=== PATIENT | female | born 1995 | race American Indian/Alaskan Native ===

== ENCOUNTER 2017-10-11 13:56 | Emergency (ER) | payer MEDICAID ==
[2017-10-11 14:01] VITALS: TEMP 98.3; O2SAT 96
--- NOTE | 2017-10-11 14:56 | ED PDOC ---
HPI: General Adult Time Seen by Provider: 10/11/17 14:18 Chief Complaint (Nursing): Dizziness/Lightheaded Chief Complaint (Provider): i need to get checked out History Per: Patient History/Exam Limitations: no limitations Current Symptoms Are (Timing): Still Present Severity: Mild Recently: Treated By A Physician Additional Complaint(s): 22yo female c/o dizziness, concerns for , mild pelvic cramping ongoing for about a week. Has mild vaginal bleeding but dark and not consistent with prior menses. Has prior history of ectopic so concerned for same. Was prior on depoprovera, stopped several months ago. denies fever, syncope, urinary symptoms or headache. States went to a "fast track" and had pelvic exam last week and blood work/ test at [facility] last week unknown results but they told her preg negative. Now here for second opinion and inability to followup. Past Medical History Reviewed: Historical Data, Nursing Documentation, Vital Signs Vital Signs: Last Vital Signs Temp 98.3 F 10/11/17 13:59 Pulse 89 10/11/17 16:30 Resp 18 10/11/17 16:30 BP 130/80 10/11/17 16:30 Pulse Ox 96 10/11/17 16:52 - Medical History PMH: Anxiety, Depression Other PMH: schizoaffective disorder - Surgical History Other surgeries: ectopic preg ?oophorectomuy - Family History Family History: States: Unknown Family Hx - Living Arrangements Living Arrangements: With Family - Social History Current smoker - smoking cessation education provided: No - Immunization History Hx Tetanus Toxoid Vaccination: No Hx Influenza Vaccination: No Hx Pneumococcal Vaccination: No - Home Medications Home Medications: Ambulatory Orders Medication Instructions Recorded Nitrofurantoin Macrocrystals 100 mg PO BID #14 cap 08/08/16 [Macrobid] - Allergies Allergies/Adverse Reactions: Allergies Allergy/AdvReac Type Severity Reaction Status Date / Time No Known Allergies Allergy Verified 10/11/17 13:59 Review of Systems Constitutional: Negative for: Fever Cardiovascular: Positive for: Light Headedness. Negative for: Chest Pain Respiratory: Negative for: Cough Gastrointestinal: Negative for: Abdominal Pain Genitourinary Female: Positive for: Vaginal Bleeding, Pelvic Pain. Negative for : Dysuria Musculoskeletal: Negative for: Neck Pain Skin: Negative for: Rash, Lesions Neurological: Positive for: Dizziness. Negative for: Weakness, Change in Speech Psych: Positive for: Anxiety, Depression. Negative for: Psychosis, Suicidal ideation, Withdrawal Physical Exam - Reviewed Nursing Documentation Reviewed: Yes Vital Signs Reviewed: Yes - Physical Exam Appears: Positive for: Well, Non-toxic, No Acute Distress Head Exam: Positive for: ATRAUMATIC, NORMAL INSPECTION, NORMOCEPHALIC Skin: Positive for: Normal Color, Warm, DRY Eye Exam: Positive for: EOMI, Normal appearance, PERRL ENT: Positive for: Normal ENT Inspection Neck: Positive for: Normal, Painless ROM Cardiovascular/Chest: Positive for: Regular Rate, Rhythm Respiratory: Positive for: CNT, Normal Breath Sounds Gastrointestinal/Abdominal: Positive for: Soft. Negative for: Tenderness, Guarding Back: Positive for: Normal Inspection Extremity: Positive for: Normal ROM Neurologic/Psych: Positive for: Alert, Oriented. Negative for: Motor/Sensory Deficits - Laboratory Results Result Diagrams: 10/11/17 14:59 10/11/17 14:59 - ECG O2 Sat by Pulse Oximetry: 96 Medical Decision Making Medical Decision Making: workup for dizziness initiated check bloodwork, preg status Disposition - Clinical Impression Clinical Impression: Dizziness - Patient ED Disposition Is Patient to be Admitted: Transfer of Care Counseled Patient/Family Regarding: Studies Performed, Diagnosis - Disposition Referrals: [facility] [Outside] Disposition: Transfer of Care Disposition Time: 14:58 Condition: STABLE Additional Instructions: DRINK PLENTY OF HYDRATING FLUIDS AND REST FOLLOW UP AT CLINIC FOR REEVALUATION AND CONTINUED REGULAR CARE. Instructions: Dizziness, Nonvertigo, (DC) Forms: [facility] ED School/Work Excuse Patient Signed Over To: Eileen Savage Handoff Comments: pending bloodwork, preg status, workup and dispo
[2017-10-11 15:07] LABS: BASO % 0.5 % (0.0-2.0); EOS # 0.1 K/uL (0.0-0.7); HEMOGLOBIN 14.8 g/dL (12.0-16.0); LYMPH # 1.7 K/uL (1.0-4.3); LYMPH % 26.3 % (20.0-40.0); MEAN CELL VOLUME 92.8 fl (81.0-99.0); MEAN CORPUSCULAR HEMOGLOBIN 30.8 pg (27.0-31.0); MEAN CORPUSCULAR HGB CONC 33.1 g/dL (33.0-37.0); MEAN PLATELET VOLUME 9.3 fl (7.2-11.7); MONO # 0.6 K/uL (0.0-0.8); MONO % 8.8 % (0.0-10.0); NEUT % 63.4 % (50.0-75.0); NRBC % 0.1 % (0.0-0.0); RBC 4.81 Mil/uL (3.80-5.20); RED CELL DISTRIBUTION WIDTH 13.4 % (11.5-14.5); WHITE BLOOD COUNT 6.4 K/uL (4.8-10.8)
[2017-10-11 15:17] LABS: ALB/GLOB RATIO 1.2 (1.0-2.1); ALBUMIN 4.2 g/dL (3.5-5.0); ALT/SGPT 28 U/L (9-52); AST/SGOT 25 U/L (14-36); BLOOD UREA NITROGEN 5 mg/dl (7-17); CALCIUM 8.8 mg/dL (8.4-10.2); GFR AFRICAN-AMERICAN > 60; GFR NON-AFRICAN AMERICAN > 60
--- NOTE | 2017-10-11 15:50 | ED PDOC ---
- Laboratory Results Result Diagrams: 10/11/17 14:59 10/11/17 14:59 - ECG O2 Sat by Pulse Oximetry: 96 - Progress ED Course And Treament: 3p Rec'd endorsement from Dr Walden. Pt with nonvert dizzziness/ lightheadedness. Pending ER workup and final ER disposition. 350p DW pt findings and plan of care. Increase fluids, rest, f/u clinic. Pt requesting her results, which were directly handed to patient. Strongly advised clinic f/u for irregular bleeding. Disposition - Clinical Impression Clinical Impression: Dizziness - POA Present On Arrival: None - Disposition Referrals: [facility] [Outside] Disposition: Routine/Home Disposition Time: 15:49 Condition: STABLE Additional Instructions: DRINK PLENTY OF HYDRATING FLUIDS AND REST FOLLOW UP AT CLINIC FOR REEVALUATION AND CONTINUED REGULAR CARE. Instructions: Dizziness, Nonvertigo, (DC) Forms: [facility] ED School/Work Excuse
[2017-10-11 17:41] VITALS: BP 130/80; PULSE 89; RESP 18
--- NOTE | 2017-10-13 09:56 | CARD ---
APPROVED REPORT EKG Measurement Heart [id number] <Conclusion> Normal sinus rhythm Normal ECG
== END 2017-10-11 16:30 | disposition home or self-care (01) ==
LOC: H.ER 13:56
DX: R42 Dizziness and giddiness (principal)

== ENCOUNTER 2017-11-01 11:00 | Emergency (ER) | payer MEDICAID ==
--- NOTE | 2017-11-01 12:01 | ED PDOC ---
HPI: General Adult Time Seen by Provider: 11/01/17 11:28 Chief Complaint (Nursing): Dizziness/Lightheaded Additional Complaint(s): 22 y/o F c PMHx ectopic p/w lightheadedness x 1 day. Patient states has occurred multiple times before intermittently. Reports loose stool x 1 week. Denies fever, chills, chest pain, dyspnea, vomiting, dysuria, heavy vaginal bleeding (recently discontinued Depo shot), syncope, fall. Past Medical History - Medical History PMH: Anxiety, Depression - Family History Family History: States: Unknown Family Hx - Immunization History Hx Tetanus Toxoid Vaccination: No Hx Influenza Vaccination: No Hx Pneumococcal Vaccination: No - Home Medications Home Medications: Ambulatory Orders Medication Instructions Recorded Nitrofurantoin Macrocrystals 100 mg PO BID #14 cap 08/08/16 [Macrobid] - Allergies Allergies/Adverse Reactions: Allergies Allergy/AdvReac Type Severity Reaction Status Date / Time No Known Allergies Allergy Verified 10/11/17 13:59 Review of Systems ROS Statement: Except As Marked, All Systems Reviewed And Found Negative Constitutional: Negative for: Fever Cardiovascular: Negative for: Chest Pain Physical Exam - Physical Exam Comments: Gen: NAD Head: NC Eyes: No scleral icterus ENT: MMM Neck: Supple Chest: No tenderness CV: Regular rate Lungs: CTA b/l Abd: Soft, NT Back: No CVA tenderness Extremities: No edema Skin: No rash Neuro: Alert, no focal deficit - Laboratory Results Result Diagrams: 11/01/17 12:05 11/01/17 12:05 Medical Decision Making Medical Decision Making: Orthostatics became negative after 2 L and patient states she feels better. Discharged, continue PO fluids at home, f/u primary care, return to ED for worsening pain, vomiting, dyspnea, fever, or any other problem. Disposition - Clinical Impression Clinical Impression: Lightheadedness - Patient ED Disposition Is Patient to be Admitted: No - Disposition Disposition: Routine/Home Disposition Time: 15:02 Condition: STABLE Instructions: Dizziness, Nonvertigo, (DC) Forms: [employer] (Arabic)
[2017-11-01 12:30] LABS: BASO % 0.6 % (0.0-2.0); EOS % 0.7 % (0.0-4.0); HEMOGLOBIN 14.1 g/dL (12.0-16.0); LYMPH # 1.1 K/uL (1.0-4.3); LYMPH % 19.9 % (20.0-40.0); MEAN CELL VOLUME 93.2 fl (81.0-99.0); MEAN CORPUSCULAR HEMOGLOBIN 30.8 pg (27.0-31.0); MEAN PLATELET VOLUME 9.4 fl (7.2-11.7); MONO # 0.5 K/uL (0.0-0.8); MONO % 8.1 % (0.0-10.0); NEUT # 3.9 K/uL (1.8-7.0); NEUT % 70.7 % (50.0-75.0); RBC 4.59 Mil/uL (3.80-5.20); RED CELL DISTRIBUTION WIDTH 13.4 % (11.5-14.5); WHITE BLOOD COUNT 5.6 K/uL (4.8-10.8)
[2017-11-01] MEDS: Sodium Chloride 0.9% 1,000 ML IV SCH ×2 (12:42→13:35)
[2017-11-01 12:43] LABS: ALB/GLOB RATIO 1.2 (1.0-2.1); ALBUMIN 3.8 g/dL (3.5-5.0); ALT/SGPT 29 U/L (9-52); AST/SGOT 28 U/L (14-36); BLOOD UREA NITROGEN 4 mg/dl (7-17); CALCIUM 9.1 mg/dL (8.4-10.2); GFR AFRICAN-AMERICAN > 60; GFR NON-AFRICAN AMERICAN > 60
[2017-11-01] MEDS ORDERED: Sodium Chloride 0.9% 1,000 ML IV SCH (12:45)
[2017-11-01 15:24] VITALS: O2SAT 100
[2017-11-01 15:25] VITALS: BP 124/88; PULSE 93; TEMP 98
[2017-11-01 15:26] VITALS: RESP 16
== END 2017-11-01 15:05 | disposition home or self-care (01) ==
LOC: H.ER 11:00
DX: R42 Dizziness and giddiness (principal); F32.9 Major depressive disorder, single episode, unspecified; F41.9 Anxiety disorder, unspecified
CPT/HCPCS: 80053; 81025; 84702; 85025; 96360; 99285; J7030

== ENCOUNTER 2017-11-08 12:10 | Emergency (ER) | payer MEDICAID ==
[2017-11-08 12:23] VITALS: TEMP 98.5; O2SAT 100
--- NOTE | 2017-11-08 12:27 | ED PDOC ---
HPI: Abdomen Time Seen by Provider: 11/08/17 12:27 Chief Complaint (Nursing): Abdominal Pain Chief Complaint (Provider): abd pain History Per: Patient Additional Complaint(s): 22-year-old female presents with vaginal discharge and cramping lower abdominal pain that started 2 days ago. Patient is due for her menses but she is concerned she may be . No fever or chills. Patient denies vaginal bleeding. No nausea, vomiting, diarrhea or constipation. PMD: none Past Medical History Reviewed: Historical Data, Nursing Documentation, Vital Signs Vital Signs: Last Vital Signs Temp 98.5 F 11/08/17 12:21 Pulse 93 H 11/08/17 12:21 Resp 16 11/08/17 12:21 BP 118/74 11/08/17 12:21 Pulse Ox 100 11/08/17 12:40 - Medical History PMH: Anxiety, Depression - Surgical History Other surgeries: Left oophorectomy - Family History Family History: States: No Known Family Hx - Living Arrangements Living Arrangements: With Family - Social History Current smoker - smoking cessation education provided: Yes Alcohol: None Drugs: Cannabis - Home Medications Home Medications: Ambulatory Orders Medication Instructions Recorded Nitrofurantoin Macrocrystals 100 mg PO BID #14 cap 08/08/16 [Macrobid] Metronidazole [Metrogel] 60 gm VAG HS #1 packet 11/08/17 Nitrofurantoin Macrocrystals 100 mg PO BID #14 cap 11/08/17 [Macrobid] - Allergies Allergies/Adverse Reactions: Allergies Allergy/AdvReac Type Severity Reaction Status Date / Time haloperidol [From Haldol] AdvReac PAIN Verified 11/08/17 12:21 Review of Systems ROS Statement: Except As Marked, All Systems Reviewed And Found Negative Constitutional: Negative for: Fever, Chills Respiratory: Negative for: Cough Gastrointestinal: Positive for: Abdominal Pain. Negative for: Nausea, Vomiting , Diarrhea, Constipation Genitourinary Female: Positive for: Dysuria, Frequency, Vaginal Discharge, Pelvic Pain. Negative for: Incontinence, Hematuria, Vaginal Bleeding Physical Exam - Reviewed Nursing Documentation Reviewed: Yes Vital Signs Reviewed: Yes - Physical Exam Appears: Positive for: Well, Non-toxic, No Acute Distress Skin: Positive for: Normal Color. Negative for: Rash Eye Exam: Positive for: Normal appearance Cardiovascular/Chest: Positive for: Regular Rate, Rhythm Respiratory: Positive for: Normal Breath Sounds Gastrointestinal/Abdominal: Positive for: Soft. Negative for: Tenderness, Distended, Guarding, Rebound Pelvic Exam: Positive for: Other (deferred by patient) Extremity: Positive for: Normal ROM Neurologic/Psych: Positive for: Alert, Oriented - Laboratory Results Urine POC: Negative Urine dip results: Positive for: Leukocyte Esterase (trace). Negative for: Blood, Nitrate, Ketones, Glucose, Bilirubin, Protein - ECG O2 Sat by Pulse Oximetry: 100 Pulse Ox Interpretation: Normal Medical Decision Making Medical Decision Makin22 year old with dysuria, abd pain and vaginal discharge Plan: Urine test Urine dip Urine culture CHL/GC culture Leukocytes noted in urine, will treat with Macrobid for UTI. Patient has vaginal discharge with history of bacterial vaginosis, will cover with prescription for MetroGel. Patient was offered empiric treatment for chlamydia and gonorrhea but she declined. She prefers to wait for culture results. She was referred to [facility] clinic for follow up. Disposition - Clinical Impression Clinical Impression: Urinary tract infection, Bacterial vaginosis - Patient ED Disposition Is Patient to be Admitted: No Counseled Patient/Family Regarding: Studies Performed, Diagnosis, Need For Followup, Rx Given - Disposition [facility] Disposition: Routine/Home Disposition Time: 12:46 Condition: STABLE Additional Instructions: Take prescription meds as directed. [id number] Tylenol or Advil for pain as needed. Follow-up with sap fico business analyst in 2-3 days. Prescriptions: Metronidazole [Metrogel] 60 gm VAG HS #1 packet Nitrofurantoin Macrocrystals [Macrobid] 100 mg PO BID #14 cap Instructions: Urinary Tract Infections in Adults, Bacterial Vaginosis (DC) Forms: [employer] (Martiniquais)
[2017-11-08 12:56] LABS: SQUAMOUS EPITHIAL 5 /hpf (0-5); URINE BACTERIA RARE (<OCC); URINE BILIRUBIN NEGATIVE (NEGATIVE); URINE BLOOD NEGATIVE (NEGATIVE); URINE CLARITY CLOUDY (Clear); URINE COLOR YELLOW (YELLOW); URINE GLUCOSE (UA) NEG (Normal); URINE LEUKOCYTE ESTERASE TRACE Leu/uL (Negative); URINE PROTEIN NEGATIVE (NEGATIVE)
[2017-11-08 14:42] VITALS: BP 110/72; PULSE 89; RESP 18
== END 2017-11-08 13:55 | disposition home or self-care (01) ==
LOC: H.ER 12:10
DX: N39.0 Urinary tract infection, site not specified (principal); N76.0 Acute vaginitis; F17.200 Nicotine dependence, unspecified, uncomplicated; F32.9 Major depressive disorder, single episode, unspecified; F41.9 Anxiety disorder, unspecified

== ENCOUNTER 2017-11-17 08:12 | Emergency (ER) | payer MEDICAID ==
[2017-11-17 08:16] VITALS: BMI 34.0
--- NOTE | 2017-11-17 09:07 | ED PDOC ---
HPI: General Adult Chief Complaint (Provider): dizziness History Per: Patient History/Exam Limitations: no limitations Onset/Duration Of Symptoms: Hrs, Intermittent Episodes Recently: Seen In ED <Ilsa Elder - Last Filed: 11/17/17 09:36> <Maximus Andrade - Last Filed: 11/17/17 10:23> Time Seen by Provider: 11/17/17 08:25 Chief Complaint (Nursing): Dizziness/Lightheaded Additional Complaint(s): 22 yo F, hx schizoaffective d/o, anxiety, depression, no known medical issues, presented to ED with c/o dizziness since 7 am. Pt is homeless, woke up in skilled nursing and felt dizzy, so came to ED. Denies syncope, chest pain, headaches, shortness of breath, abdominal pain, nausea, vomiting, dysuria. Was recently seen in ED on 11/01 and 11/08, labs done at that time: WBC 5.6, Hgb 14.1, Hct 42.7, Plt 241 Na 141, K 3.8, Cl 104, CO2 25, BUN 4, Cr 0.8, GFR >60 UA: yellow, clear, nitrate neg, LE trace. At visit on 11/08, c/o vaginal irritation - GC/CL neg. Medications: seroquel, gabapentin provided by her psychiatrist Allergies: Haldol (Ilsa Elder) Supervising Attending Note <Ilsa Elder - Last Filed: 11/17/17 09:36> - Supervising Attending Note The Documented history was done by the: Physician City Marshal The documented physical exam was done by the: Physician City Marshal The documented procedures were done by the: Physician City Marshal - Attestation: I have personally seen and examined this patient.: Yes I have fully participated in the care of the patient.: Yes I have reviewed all pertinent clinical information, including history, physical exam and plan: Yes <Maximus Andrade - Last Filed: 11/17/17 10:23> - Notes: Notes:: Diziness that she get frequently for a long time. Homeless and not on meds for it. (Maximus Andrade) Past Medical History - Medical History PMH: Anxiety, Depression, Schizophrenia - Surgical History Other surgeries: L fallopian tube taken out due to ectopic preg - Family History Family History: States: Unknown Family Hx - Social History Drugs: Cannabis - Immunization History Hx Tetanus Toxoid Vaccination: No Hx Influenza Vaccination: No Hx Pneumococcal Vaccination: No <Ilsa Elder - Last Filed: 11/17/17 09:36> <Maximus Andrade Anthony - Last Filed: 11/17/17 10:23> Vital Signs: Last Vital Signs Temp 97.7 F 11/17/17 08:16 Pulse 73 11/17/17 08:16 Resp 16 11/17/17 08:16 BP 120/80 11/17/17 08:16 Pulse Ox 98 11/17/17 09:37 - Home Medications Home Medications: Ambulatory Orders Medication Instructions Recorded Nitrofurantoin Macrocrystals 100 mg PO BID #14 cap 08/08/16 [Macrobid] Metronidazole [Metrogel] 60 gm VAG HS #1 packet 11/08/17 Nitrofurantoin Macrocrystals 100 mg PO BID #14 cap 11/08/17 [Macrobid] Meclizine [Meclizine*] 25 mg PO Q12 PRN #10 tab 11/17/17 - Allergies Allergies/Adverse Reactions: Allergies Allergy/AdvReac Type Severity Reaction Status Date / Time haloperidol [From Haldol] AdvReac PAIN Verified 11/08/17 12:21 Review of Systems Constitutional: Positive for: Other (dizziness) Cardiovascular: Negative for: Chest Pain, Palpitations Respiratory: Negative for: Cough, Shortness of Breath Gastrointestinal: Negative for: Vomiting Genitourinary Female: Negative for: Dysuria, Frequency Psych: Positive for: Anxiety, Depression <JaelIlsa - Last Filed: 11/17/17 09:36> Constitutional: Positive for: Other Neurological: Positive for: Dizziness <Maximus Andrade Anthony - Last Filed: 11/17/17 10:23> Physical Exam - Reviewed Nursing Documentation Reviewed: Yes Vital Signs Reviewed: Yes - Physical Exam Head Exam: Positive for: NORMAL INSPECTION Skin: Positive for: Normal Color, Warm, Dry. Negative for: Diaphoresis ENT: Positive for: Normal ENT Inspection, Pharynx Is (clear of erythema/exudates ) Neck: Positive for: Supple Cardiovascular/Chest: Positive for: Regular Rate, Rhythm, Chest Non Tender Respiratory: Positive for: Normal Breath Sounds. Negative for: Respiratory Distress Pulses-Radial (L): 2+ Pulses-Radial (R): 2+ Gastrointestinal/Abdominal: Positive for: Bowel Sounds, Soft. Negative for: Tenderness, Distended Extremity: Positive for: Normal ROM. 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 Negative for: Motor/Sensory Deficits, Aphasia, Facial Droop <Maximus Andrade - Last Filed: 11/17/17 10:23> - ECG O2 Sat by Pulse Oximetry: 98 <Ilsa Elder - Last Filed: 11/17/17 09:36> - ECG ECG: Positive for: Interpreted By Me, Viewed By Me ECG Rhythm: Positive for: Normal QRS, Normal ST Segment, Sinus Rhythm Pulse Ox Interpretation: Normal <Maximus Andrade - Last Filed: 11/17/17 10:23> - Progress ED Course And Treament: 1019: Pt. stable. AAOx3. No dizziness currently. Tolerated po. No headaches , numbness, tingles. Seen recently for same and had blood work/eval with no findings. Ambulated with no issues. (Maximus Andrade) Medical Decision Making <Ilsa Elder - Last Filed: 11/17/17 09:36> <Maximus Andrade - Last Filed: 11/17/17 10:23> Medical Decision Making: - EKG - NSR @ 65 bpm - accucheck - 126 - antivert - PO fluids/food (Ilsa Elder) Disposition <Ilsa Elder - Last Filed: 11/17/17 09:36> - Patient ED Disposition Is Patient to be Admitted: No Counseled Patient/Family Regarding: Studies Performed, Diagnosis, Need For Followup, Rx Given - Disposition Disposition: Routine/Home Disposition Time: 10:00 <Maximus Andrade - Last Filed: 11/17/17 10:23> - Clinical Impression Clinical Impression: Dizziness - Disposition Referrals: [facility] [Outside] - 11/18/17 Condition: STABLE Additional Instructions: Return if not better in 3 days. Prescriptions: Meclizine [Meclizine*] 25 mg PO Q12 PRN #10 tab PRN Reason: Dizziness Instructions: Dizziness, Nonvertigo, (DC)
[2017-11-17 12:00] VITALS: BP 112/66; PULSE 89; RESP 18; TEMP 98.1; O2SAT 99
--- NOTE | 2017-11-17 15:18 | CARD ---
APPROVED REPORT Date of service: 11/17/2017 EKG Measurement Heart [id number] <Conclusion> Normal sinus rhythm with sinus arrhythmia Normal ECG
== END 2017-11-17 12:00 | disposition home or self-care (01) ==
LOC: H.ER 08:12
DX: R42 Dizziness and giddiness (principal); F20.9 Schizophrenia, unspecified; F32.9 Major depressive disorder, single episode, unspecified; F41.9 Anxiety disorder, unspecified; Z59.0 Homelessness

== ENCOUNTER 2018-01-04 18:29 | Inpatient (IN) | payer MEDICAID ==
[2018-01-04 18:29] VITALS: BMI 34.0
--- NOTE | 2018-01-04 20:01 | ED PDOC ---
HPI: Psych/Substance Abuse Time Seen by Provider: 01/04/18 18:37 Chief Complaint (Nursing): Psychiatric Evaluation Chief Complaint (Provider): Psychiatric Evaluation History Per: Patient, EMS History/Exam Limitations: no limitations Onset/Duration Of Symptoms: Hrs (this morning) Current Symptoms Are (Timing): Still Present Additional Complaint(s): 22 year old female presents to the ED for a psychiatric evaluation. Patient states that she called an ambulance today secondary to her feeling as if something happened to her daughter currently in foster care, whom she has had no contact with for a year. She also states feeling as if something happened to her girlfriend, after attempting to call her and she did not tile picker. Patient does not know why these feelings arose. As per psych arnp, who received a report from EMS, patient verbalized suicidal ideation, but then denied it to the psych arnp. Of note, patient states she has been taking her Seroquel and Gabapentin. Denies suicidal ideation, homicidal ideation. PMD: [facility] Past Medical History Reviewed: Historical Data, Nursing Documentation, Vital Signs Vital Signs: Last Vital Signs Temp 98.8 F 01/04/18 18:31 Pulse 103 H 01/04/18 18:31 Resp 16 01/04/18 18:31 BP 129/81 01/04/18 18:31 Pulse Ox 98 01/04/18 18:31 - Medical History PMH: Anxiety, Depression, Schizophrenia Denies: Chronic Kidney Disease - Surgical History Surgical History: No Surg Hx - Family History Family History: States: Unknown Family Hx - Living Arrangements Living Arrangements: Other (jail) - Immunization History Hx Tetanus Toxoid Vaccination: No Hx Influenza Vaccination: No Hx Pneumococcal Vaccination: No - Home Medications Home Medications: Ambulatory Orders Medication Instructions Recorded QUEtiapine [Seroquel] 300 mg PO HS 30 Days #30 tab 12/29/17 - Allergies Allergies/Adverse Reactions: Allergies Allergy/AdvReac Type Severity Reaction Status Date / Time haloperidol [From Haldol] AdvReac PAIN Verified 12/21/17 16:29 lactose AdvReac VOMITING Verified 12/22/17 19:52 Review of Systems ROS Statement: Except As Marked, All Systems Reviewed And Found Negative Psych: Positive for: Other (feeling as if something is wrong with girlfriend and daughter). Negative for: Suicidal ideation (or homicidal ideation) Physical Exam - Reviewed Nursing Documentation Reviewed: Yes Vital Signs Reviewed: Yes - Physical Exam Appears: Positive for: No Acute Distress Head Exam: Positive for: ATRAUMATIC, NORMOCEPHALIC Skin: Positive for: Normal Color, Warm, Dry Eye Exam: Positive for: Normal appearance ENT: Positive for: Normal ENT Inspection Neck: Positive for: Normal, Painless ROM, Supple Cardiovascular/Chest: Positive for: Regular Rate, Rhythm Respiratory: Positive for: Normal Breath Sounds. Negative for: Accessory Muscle Use, Respiratory Distress Gastrointestinal/Abdominal: Positive for: Normal Exam, Soft. Negative for: Tenderness Back: Positive for: Normal Inspection Extremity: Positive for: Normal ROM Neurologic/Psych: Positive for: Alert, Oriented (x3), Mood/Affect (calm, cooperative) - Laboratory Results Result Diagrams: 01/04/18 21:11 01/04/18 21:11 - ECG O2 Sat by Pulse Oximetry: 98 (RA) Pulse Ox Interpretation: Normal Medical Decision Making Medical Decision Making: Time: 1836 Initial Impression: psychiatric evaluation Initial Plan: --Crisis evaluation --Urine --1:1 observation 1999 Patient evaluated by Phoebe, receiving worker, who spoke with Dr. Cortez. Initially cleared patient for discharge and upon discussing plan with patient, she verbalized that she does not feel safe being discharged but will not elaborate why. Phoebe called Diego again and requested patient be reevaluated after a few hours. Scribe Attestation: Documented by Elvira Correa, acting as a scribe for Davion Gaston PA-C. Provider Scribe Attestation: All medical record entries made by the Scribe were at my direction and personally dictated by me. I have reviewed the chart and agree that the record accurately reflects my personal performance of the history, physical exam, medical decision making, and the department course for this patient. I have also personally directed, reviewed, and agree with the discharge instructions and disposition. Disposition - Clinical Impression Clinical Impression: Schizophrenia - Patient ED Disposition Is Patient to be Admitted: Transfer of Care (Signed out to Anuel MCGINNIS pending crisis disposition.) - Disposition Disposition Time: 00:00 Condition: STABLE Forms: [facility] (S[place] Tomean)
[2018-01-04 21:15] LABS: BASO % 0.4 % (0.0-2.0); EOS # 0.1 K/uL (0.0-0.7); HEMOGLOBIN 12.7 g/dL (12.0-16.0); LYMPH # 1.8 K/uL (1.0-4.3); LYMPH % 25.5 % (20.0-40.0); MEAN CELL VOLUME 93.1 fl (81.0-99.0); MEAN CORPUSCULAR HEMOGLOBIN 30.8 pg (27.0-31.0); MEAN CORPUSCULAR HGB CONC 33.1 g/dL (33.0-37.0); MEAN PLATELET VOLUME 9.5 fl (7.2-11.7); MONO # 0.6 K/uL (0.0-0.8); NEUT # 4.5 K/uL (1.8-7.0); NEUT % 65.1 % (50.0-75.0); NRBC % 0.1 % (0.0-0.0); RBC 4.11 Mil/uL (3.80-5.20); WHITE BLOOD COUNT 6.9 K/uL (4.8-10.8)
[2018-01-04 21:29] LABS: ALB/GLOB RATIO 1.3 (1.0-2.1); ALBUMIN 3.7 g/dL (3.5-5.0); ALT/SGPT 24 U/L (9-52); AST/SGOT 22 U/L (14-36); BLOOD UREA NITROGEN 6 mg/dl (7-17); CALCIUM 9.1 mg/dL (8.4-10.2); GFR NON-AFRICAN AMERICAN > 60
[2018-01-04 21:36] LABS: SQUAMOUS EPITHIAL 4 /hpf (0-5); URINE BACTERIA OCC (<OCC); URINE BILIRUBIN NEGATIVE (NEGATIVE); URINE BLOOD NEGATIVE (NEGATIVE); URINE CLARITY SLIGHTY-CLOUDY (Clear); URINE COLOR YELLOW (YELLOW); URINE GLUCOSE (UA) NEG (Normal); URINE LEUKOCYTE ESTERASE TRACE Leu/uL (Negative); URINE PROTEIN NEGATIVE (NEGATIVE); URINE UROBILINOGEN 0.2-1.0 mg/dL (0.2-1.0)
[2018-01-04 22:00] LABS: BARBITURATES, UR NEGATIVE (NEGATIVE); BENZODIAZEPINES, UR NEGATIVE (NEGATIVE); OPIATES, UR NEGATIVE (NEGATIVE); PHENCYCLIDINE, UR NEGATIVE (NEGATIVE)
--- NOTE | 2018-01-05 00:18 | ED PDOC ---
- Laboratory Results Result Diagrams: 01/04/18 21:11 01/04/18 21:11 - ECG O2 Sat by Pulse Oximetry: 98 (RA) - Progress ED Course And Treament: Case endorsed to repairer typewriter from Marilin MCGINNIS pending crisis re-eval Patient evaluated by apron worker; to be admitted as per Dr. Cortez Medical Decision Making Medical Decision Making: Patient medically stable for psych admission Disposition - Clinical Impression Clinical Impression: Schizophrenia - POA Present On Arrival: None - Disposition Disposition: Admitted as In-Patient Disposition Time: 00:17 Condition: STABLE Forms: [employer] ([place] Korean)
[2018-01-05 00:54] VITALS: O2SAT 99
[2018-01-05] MEDS ORDERED: Magnesium Hydroxide Susp 30 ml UD PO PRN (01:43)
[2018-01-05] MEDS ORDERED: Alum-Mag Hydrox-Simethicone Susp (30 mL) PO PRN (01:43)
[2018-01-05] MEDS ORDERED: DiphenhydrAMINE 50 mg/ml Inj IM PRN (01:43)
--- NOTE | 2018-01-05 01:56 | PCM.BM ---
<LukaszLore Magaly - Last Filed: 01/05/18 01:54> Treatment Plan Problems - Problems identified on initial assessmt Visual hallucinations Date Initiated: 01/05/18 Time Initiated: 01:58 Assessment reference: NA Status: Active Ineffective coping Date Initiated: 01/05/18 Time Initiated: 01:58 Assessment reference: NA Status: Active Treatment assets and liabiliti Patient Assests: adapts well, cooperative, ADL independent, negotiates basic needs Patient Liabilities: poor support system, other - Milieu Protocol Maintain good personal hygiene: daily Encourage regular showers, every shift Remind patient to perform daily oral care, every shift Assist patient to perform ADL's Conduct patient checks and document Observation sheet: Q15 minutes Maintain personal safety: every shift Educate patient to report safety concerns to staff, every shift Monitor environment for contraband/sharps Medication safety: Monitor for expected outcome, potential side effects: every shift, Assess barriers to learning: every shift, Assess readiness for medication education: every shift <Candido Swartz J - Last Filed: 01/08/18 17:03> Family Contact Family involvement: Family/SO is involved Family contact: Patient declines to allow family contact at present Family contact name: Morro Simmons - Girlfrienesther Family contacted how many times per week?: 2 Family contact comment: Business Account Manager left detailed voicemail for pt's girlfriend, Morro Simmons [phone], for collateral and treatment updates. Awaiting return call. - Outside Agency Agency 1 Care involvment: Following patient during stay, Information-sharing Agency contact name: [facility] Agency contact number: [phone] - Goals for Treatment Patient goals for treatment: Pt unable to create any specifically psychiatric goals, but reported that she would like to procure housing and regain custody of her daughter. Discharge/Continuing Care - Education Needs Education Needs: Patient Medication, Patient Diagnosis/Disease Process, Patient Coping Skills, Patient Community resources, Patient Aftercare Safety Plan - Discharge Discharge Criteria: Tolerates medication w/o severe side effects, Free of Suicidal thoughts, Free of paranoid thoughts, Free of agitation, Normal sleep pattern, Ability to care for self, Reduction of target symptoms Discharge to:: Retirement - Treatment Team Participation Patient/Family/SO Statement: 01/08/18 17:07 Pt was seen in tx team on 01/06/18. Pt refused to discuss how she was feeling or why she sought help. Pt was fixated on housing and her daughter. Pt appeared internally preoccupied and tearful during the assessment. Discussed with Family/SO: No Was Patient/Family/SO present at Treatment Team Meeting: Yes <Janis Coppola - Last Filed: 01/11/18 08:40> - Diagnosis (1) Depression Status: Acute Interventions: psychotherapy, pharmacotherapy 01/11/18 08:40
--- NOTE | 2018-01-05 14:45 | PCM.PSYCH ---
Initial Psychiatric Evaluation - Initial Psychiatric Evaluation Type of Admission: Voluntary Legal Status: Capacity Chief Complaint (in patient's own words): I started hearing voices telling me to hurt myself Patient's Reaction to Hospitalization: pt requested help History of Present Illness and Precipitating Events: pt is 22ys old female with previous psychiatric diagnosis of schizoaffective disorder and cannabis use, recently discharged from hospital, non compliant with medications and started using cannabis daily, pt became increasingly paranoid and started experiencing auditory hallucinations , pt started having thoughts of ending her life, came to ER seeking help on the unit pt is guarded paranoid and evasive , internally preoccupied with thought blocking, , continues to have passive suicidal ideation without active plan on the unit, denied command hallucinatiions denied homicidal ideation Current Medications: Active Medications Generic Name Dose Route Start Last Admin Trade Name Freq PRN Reason Stop Dose Admin Acetaminophen 650 mg 01/05/18 01:43 Tylenol 325mg Tab PO Q4 PRN Pain, moderate (4-7) Al Hydrox/Mg Hydrox/Simethicone 30 ml 01/05/18 01:43 Maalox Plus 30 Ml PO Q4 PRN Dyspepsia Diphenhydramine HCl 50 mg 01/05/18 01:43 Benadryl IM Q6 PRN Extrapyramidal S/S Unable PO Diphenhydramine HCl 50 mg 01/05/18 01:43 Benadryl PO Q6 PRN Extrapyramidal Symptoms Gabapentin 100 mg 01/05/18 13:00 01/05/18 13:00 Neurontin PO 100 mg TID BLANCA Administration Hydroxyzine Pamoate 50 mg 01/05/18 12:36 Vistaril PO Q8 PRN Anxiety Lorazepam 1 mg 01/05/18 04:00 01/05/18 13:02 Ativan PO Not Given Q6 BLANCA Magnesium Hydroxide 30 ml 01/05/18 01:43 Milk Of Magnesia PO HS PRN Constipation Quetiapine Fumarate 300 mg 01/05/18 22:00 Seroquel PO HS BLANCA Quetiapine Fumarate 100 mg 01/06/18 09:00 Seroquel PO DAILY BLANCA Past Psychiatric History - Past Psychiatric History Explanation of prior treatment: multiple inpatient hospitalizations , hx of non compliance History of ETOH/Drug Use: cannabis use Pertinent Medical Hx (Current Medical&Sleep Prob, Allergies): Allergies Allergy/AdvReac Type Severity Reaction Status Date / Time haloperidol [From Haldol] AdvReac PAIN Verified 12/21/17 16:29 lactose AdvReac VOMITING Verified 12/22/17 19:52 QUEtiapine [Seroquel] 300 mg PO HS 30 Days #30 tab 12/29/17 Mental Status Examination - Personal Presentation Personal Presentation: Looks stated age - Affect Affect: Constricted, Blunted, Depressed - Motor Activity Motor Activity: Psychomotor Retardation - Reliability in Providing Information Reliability in Providing Information: Poor, due to alteration in thoughts, Poor , due to altered mood - Speech Speech: Tangential - Mood Mood: Depressed - Formal Thought Process Formal Thought Process: Hallucinations, Delusions, Paranoia, Circumstantial - Hallucinations/Delusions Hallucinations: Auditory - Obsessions/Compulsions Obsessions: No Compulsions: No - Cognitive Functions Orientation: Person, Place Sensorium: Alert Attention/Concentration: Easily distracted Abstract Thinking: [place] Judgement: Imparied, as evidence by: Poor judgement, Imparied, as evidence by: Lack of insight into illness - Risk Risk: Suicidal, Diminished functioning - Strength & Assets Inventory Strength & Assets Inventory: Life experience - Limitations Additional comments: poor compliance DSM 5 DX - DSM 5 DSM 5 Diagnosis: schizoaffective disorder depressed cannabis use disorder - Recommended/Plan of Treatment Treatment Recommendations and Plan of Treatment: start seroquel 100mg daily 300mg qhs neurontin 100mg tid motivational , group and supportive therapy Projected ELOS: 7 days Prognosis: guarded
--- NOTE | 2018-01-05 15:47 | CP.PCM.CON ---
<Roselia Soni - Last Filed: 01/05/18 16:51> History of Present Illness - History of Present Illness History of Present Illness: 22 y/o Female with PMHx of schizoaffective disorder, cannabis use, depression and anxiety admitted for psychiatry evaluation of suicide ideation, paranoid hallucinations and non-compliance with her psychiatry medications. Patient is seen today in medical consult and she denies any complains of OTERO, fever, blurry vision, tinnitus, dizziness, chest pain, SOB, palpitations, abdominal pain, N/V/ D/C, urinary problems urgency/retention/or incontinence. Patient denies hx of HTN, DM, Heart problems, GI problems, or other chronic conditions. Patient expresses she is feeling sad today. ROS: As per HPI PMD: Dr Israel Callahan at [facility]. PMHx: Schizoaffective disorder, anxiety, depression. SURG: Left tubal removal 2/2 ectopic . FMHx: Father asthma and Cancer at 57 y/o ( unknown cause). Mother depression. SOHx: Lives in a group home, smokes 6 to 7 cigarrettes/day, marijuana use daily, denies ETOH. OBGYN: [id number] 1 poor historian regarding her OB hx. Allergies: Seasonal, Haloperidol caused EPS. Past Patient History - Infectious Disease Hx of Infectious Diseases: None - Past Social History Smoking Status: Light Smoker < 10 Cigarettes Daily - CARDIAC Hx Cardiac Disorders: No - PULMONARY Hx Respiratory Disorders: No - NEUROLOGICAL Hx Neurological Disorder: No - HEENT Hx HEENT Problems: No - RENAL Hx Chronic Kidney Disease: No - ENDOCRINE/METABOLIC Hx Endocrine Disorders: No - HEMATOLOGICAL/ONCOLOGICAL Hx Blood Disorders: No - INTEGUMENTARY Hx Dermatological Problems: No - MUSCULOSKELETAL/RHEUMATOLOGICAL Hx Musculoskeletal Disorders: No - GASTROINTESTINAL Hx Gastrointestinal Disorders: No - GENITOURINARY/GYNECOLOGICAL Hx Genitourinary Disorders: No - PSYCHIATRIC Hx Psychophysiologic Disorder: Yes - SURGICAL HISTORY Hx Surgeries: Yes Other/Comment: Removal of left fallopian tube as per patient. - ANESTHESIA Hx Anesthesia: Yes Hx Anesthesia Reactions: No Hx Malignant Hyperthermia: No Meds Allergies/Adverse Reactions: Allergies Allergy/AdvReac Type Severity Reaction Status Date / Time haloperidol [From Haldol] AdvReac PAIN Verified 12/21/17 16:29 lactose AdvReac VOMITING Verified 08/21/18 19:52 - Medications Medications: Current Medications Acetaminophen (Tylenol 325mg Tab) 650 mg PO Q4 PRN PRN Reason: Pain, moderate (4-7) Al Hydrox/Mg Hydrox/Simethicone (Maalox Plus 30 Ml) 30 ml PO Q4 PRN PRN Reason: Dyspepsia Diphenhydramine HCl (Benadryl) 50 mg IM Q6 PRN PRN Reason: Extrapyramidal S/S Unable PO Diphenhydramine HCl (Benadryl) 50 mg PO Q6 PRN PRN Reason: Extrapyramidal Symptoms Gabapentin (Neurontin) 100 mg PO TID [facility] Last Admin: 01/05/18 13:00 Dose: 100 mg Hydroxyzine Pamoate (Vistaril) 50 mg PO Q8 PRN PRN Reason: Anxiety Magnesium Hydroxide (Milk Of Magnesia) 30 ml PO HS PRN PRN Reason: Constipation Quetiapine Fumarate (Seroquel) 300 mg PO HS BLANCA Quetiapine Fumarate (Seroquel) 100 mg PO DAILY [facility] Physical Exam - Constitutional Appears: Non-toxic, No Acute Distress - Head Exam Head Exam: ATRAUMATIC, NORMOCEPHALIC - Eye Exam Eye Exam: EOMI, PERRL - ENT Exam ENT Exam: Mucous Membranes Moist - Neck Exam Neck exam: Positive for: Full Rom. Negative for: Thyromegaly - Respiratory Exam Respiratory Exam: Clear to Auscultation Bilateral. absent: Wheezes - Cardiovascular Exam Cardiovascular Exam: REGULAR RHYTHM, +S1, +S2 - GI/Abdominal Exam GI & Abdominal Exam: Normal Bowel Sounds, Soft. absent: Mass, Tenderness - Extremities Exam Extremities exam: Negative for: joint swelling, pedal edema - Neurological Exam Neurological exam: Alert, Oriented x3 - Skin Skin Exam: Dry, Normal Color, Warm Results - Vital Signs Recent Vital Signs: Last Vital Signs Temp 98.2 F 01/05/18 09:19 Pulse 88 01/05/18 09:19 Resp 18 01/05/18 09:19 BP 115/76 01/05/18 09:19 Pulse Ox 99 01/05/18 00:53 - Labs Result Diagrams: 01/04/18 21:11 01/04/18 21:11 Labs: Laboratory Results - last 24 hr 01/04/18 01/04/18 01/04/18 21:11 21:11 21:11 WBC 6.9 RBC 4.11 Hgb 12.7 Hct 38.2 MCV 93.1 MCH 30.8 MCHC 33.1 RDW 14.0 Plt Count 226 MPV 9.5 Neut % (Auto) 65.1 Lymph % (Auto) 25.5 [place] % (Auto) 8.0 Eos % (Auto) 1.0 Baso % (Auto) 0.4 Neut # (Auto) 4.5 Lymph # (Auto) 1.8 [place] # (Auto) 0.6 Eos # (Auto) 0.1 Baso # (Auto) 0.0 Sodium 142 Potassium 3.8 Chloride 107 Carbon Dioxide 28 Anion Gap 11 BUN 6 L Creatinine 0.8 Est GFR ( Amer) > 60 Est GFR (Non-Af Amer) > 60 Random Glucose 77 Calcium 9.1 Total Bilirubin 0.3 AST 22 ALT 24 Alkaline Phosphatase 132 H Total Protein 6.5 Albumin 3.7 Globulin 2.8 Albumin/Globulin Ratio 1.3 Urine Color Urine Clarity Urine pH Ur Specific [place] Urine Protein Urine Glucose (UA) Urine Ketones Urine Blood Urine Nitrate Urine Bilirubin Urine Urobilinogen Ur Leukocyte Esterase Urine RBC (Auto) Urine Microscopic WBC Ur Squamous Epith Cells Urine Bacteria Urine Opiates Screen Negative Urine Methadone Screen Negative Ur Barbiturates Screen Negative Ur Phencyclidine Scrn Negative Ur Amphetamines Screen Negative U Benzodiazepines Scrn Negative U Oth Cocaine Metabols Negative U Cannabinoids Screen Positive H Alcohol, Quantitative < 10 01/04/18 21:11 WBC RBC Hgb Hct MCV MCH MCHC RDW Plt Count MPV Neut % (Auto) Lymph % (Auto) [place] % (Auto) Eos % (Auto) Baso % (Auto) Neut # (Auto) Lymph # (Auto) [place] # (Auto) Eos # (Auto) Baso # (Auto) Sodium Potassium Chloride Carbon Dioxide Anion Gap BUN Creatinine Est GFR ( Amer) Est GFR (Non-Af Amer) Random Glucose Calcium Total Bilirubin AST ALT Alkaline Phosphatase Total Protein Albumin Globulin Albumin/Globulin Ratio Urine Color Yellow Urine Clarity Slighty-cloudy Urine pH 7.0 Ur Specific [place] 1.010 Urine Protein Negative Urine Glucose (UA) Neg Urine Ketones Negative Urine Blood Negative Urine Nitrate Negative Urine Bilirubin Negative Urine Urobilinogen 0.2-1.0 Ur Leukocyte Esterase Trace Urine RBC (Auto) 2 Urine Microscopic WBC 5 Ur Squamous Epith Cells 4 Urine Bacteria Occ H Urine Opiates Screen Urine Methadone Screen Ur Barbiturates Screen Ur Phencyclidine Scrn Ur Amphetamines Screen U Benzodiazepines Scrn U Oth Cocaine Metabols U Cannabinoids Screen Alcohol, Quantitative Assessment & Plan - Assessment and Plan (Free Text) Assessment: 22 y/o Female with PMHx of schizoaffective disorder, cannabis use, depression and anxiety admitted for psychiatry evaluation of suicide ideation, paranoid hallucinations and non-compliance with her psychiatry medications. Patient is medically stable at this time. Depression -Management as per psychiatry. DVT Prophylaxis -Patient is ambulating. <Deidre Soler - Last Filed: 01/06/18 17:58> Meds - Medications Medications: Current Medications Acetaminophen (Tylenol 325mg Tab) 650 mg PO Q4 PRN PRN Reason: Pain, moderate (4-7) Al Hydrox/Mg Hydrox/Simethicone (Maalox Plus 30 Ml) 30 ml PO Q4 PRN PRN Reason: Dyspepsia Bupropion HCl (Wellbutrin) 100 mg PO DAILY [facility] Diphenhydramine HCl (Benadryl) 50 mg IM Q6 PRN PRN Reason: Extrapyramidal S/S Unable PO Diphenhydramine HCl (Benadryl) 50 mg PO Q6 PRN PRN Reason: Extrapyramidal Symptoms Gabapentin (Neurontin) 100 mg PO TID [facility] Last Admin: 01/06/18 10:21 Dose: 100 mg Hydroxyzine Pamoate (Vistaril) 50 mg PO Q8 PRN PRN Reason: Anxiety Last Admin: 01/05/18 15:58 Dose: 50 mg Magnesium Hydroxide (Milk Of Magnesia) 30 ml PO HS PRN PRN Reason: Constipation Quetiapine Fumarate (Seroquel) 100 mg PO DAILY [facility] Last Admin: 01/06/18 10:21 Dose: 100 mg Quetiapine Fumarate (Seroquel) 400 mg PO HS [facility] Results - Vital Signs Recent Vital Signs: Last Vital Signs Temp 97.7 F 01/05/18 16:42 Pulse 84 01/05/18 16:42 Resp 18 01/05/18 16:42 BP 117/87 01/05/18 16:42 Pulse Ox 99 01/05/18 00:53 - Labs Result Diagrams: 01/04/18 21:11 01/04/18 21:11 Attending/Attestation - Attestation I have personally seen and examined this patient.: Yes I have fully participated in the care of the patient.: Yes I have reviewed all pertinent clinical information: Yes Notes (Text): 01/06/18 17:58 Seen, examined, and discussed with resident. Agree with findings and plan as above.
--- NOTE | 2018-01-06 14:15 | PCM.PYCHPN ---
Psychiatric Progress Note - Psychiatric Progress Note Patient seen today, length of contact: pt evaluated discussed with team chart reviewed Patient Chief Complaint: I started hearing voices telling me to hurt myself Problems Identified/Issues Discussed: pt evaluated with treatment team, , reported continues to have non command auditory hallucinations, motivational therapy provided and discussed with pt the effect of cannabis on current mental status , pt continues to present with depressed mood, tearful when talking about her daughter , discussed with pt starting wellbutrin for depression and to help with craving for cannabis , encouraged pt to attend groups, also discussed possible referral to outpatient [facility] on discharge will increase dose of seroquel gradually for AH, pt denied any current active thoughts of self harm on the unit Medical Problems: multiple inpatient hospitalizations , hx of non compliance DSM 5 Symptoms Update: cannabis induced psychotic disorder cannabis abuse post traumatic stress disorder hx of schizoaffective disorder Medication Change: Yes (increase seoquel/ start wellbutrin) Medical Record Reviewed: Yes Mental Status Examination - Cognitive Function Orientation: Person, Place Attention: WNL Concentration: WNL Association: WNL Fund of Knowledge: Poor Decription of patient's judgement and insights: poor insight and judgment - Mood Mood: Depressed - Affect Affect: Constricted, Blunted, Depressed - Speech Speech: Soft - Formal Thought Process Formal Thought Process: Hallucinations, Delusions, Paranoia, Circumstantial Psychotic Thoughts and Behaviors: pt reported non command auditory hallucinations - Suicidal Ideation Suicidal Ideation: No - Homicidal Ideation Homicidal Ideation: No Goal/Treatment Plan - Goal/Treatment Plan Need for Continued Stay: Severe depression anxiety, Discharge may exacerbated symptoms Progress Toward Problem(s) and Goals/Treatment Plan: increase seroquel 100mg daily 400mg qhs start wellbutrin 75 mg daily and increase gradually neurontin 100mg tid motivational , group and supportive therapy
--- NOTE | 2018-01-07 13:11 | PCM.PYCHPN ---
Psychiatric Progress Note - Psychiatric Progress Note Patient seen today, length of contact: pt evaluated discussed with team chart reviewed Patient Chief Complaint: I do not have energy and i feel hopeless Problems Identified/Issues Discussed: pt evaluated w in day room, presenting with depressed mood, depressed and constricted affect , low energy and poor motivation, passive suicidal ideation , feeling hopeless about her situation as she could not have her daughter, CBT provided, discussed with pt increasing the dose of wellbutrin pt reported partial clearing of the auditory halluciantions, continues to isolate herself in her room, encouraged pt to attend groups pt denied any current active thoughts of self harm on the unit , denied command hallucinations Medical Problems: multiple inpatient hospitalizations , hx of non compliance DSM 5 Symptoms Update: 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 PTSD hx of schizoaffective disorder Medication Change: No Medical Record Reviewed: Yes Mental Status Examination - Cognitive Function Orientation: Person, Place Attention: WNL Concentration: WNL Association: WNL Fund of Knowledge: Poor Decription of patient's judgement and insights: poor insight and judgment - Mood Mood: Depressed - Affect Affect: Constricted, Blunted, Depressed - Speech Speech: Soft - Formal Thought Process Formal Thought Process: Hallucinations, Delusions, Paranoia, Circumstantial Psychotic Thoughts and Behaviors: pt reported non command auditory hallucinations - Suicidal Ideation Suicidal Ideation: No - Homicidal Ideation Homicidal Ideation: No Goal/Treatment Plan - Goal/Treatment Plan Need for Continued Stay: Severe depression anxiety, Discharge may exacerbated symptoms Progress Toward Problem(s) and Goals/Treatment Plan: seroquel 100mg daily 400mg qhs wellbutrin 100 mg daily and increase gradually neurontin 100mg tid motivational , group and supportive therapy
--- NOTE | 2018-01-08 14:41 | PCM.PYCHPN ---
Psychiatric Progress Note - Psychiatric Progress Note Patient seen today, length of contact: pt evaluated discussed with team chart reviewed Patient Chief Complaint: I feel down when I think about my daughter Problems Identified/Issues Discussed: pt continues to present with depressed mood , depressed, constricted affect, continues to report feeling anxious about something bad to happen to her daughter in foster care , pt also reported continues to have non command auditory hallucinations in day time, discussed increasing the dose of wellbutrin and seroquel , motivational therapy provided in reference to cannabis use , encouraged pt to attend groups pt denied any current active thoughts of self harm on the unit , denied side effects of medications Medical Problems: multiple inpatient hospitalizations , hx of non compliance DSM 5 Symptoms Update: 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 hx of schizoaffective disorder PTSD Medication Change: Yes (INCREASE WELLBUTRIN AND SEROQUEL) Medical Record Reviewed: Yes Mental Status Examination - Cognitive Function Orientation: Person, Place Attention: WNL Concentration: WNL Association: WNL Fund of Knowledge: Poor Decription of patient's judgement and insights: poor insight and judgment - Mood Mood: Depressed - Affect Affect: Constricted, Blunted, Depressed - Speech Speech: Soft - Formal Thought Process Formal Thought Process: Hallucinations, Delusions, Paranoia, Circumstantial Psychotic Thoughts and Behaviors: pt reported non command auditory hallucinations - Suicidal Ideation Suicidal Ideation: No - Homicidal Ideation Homicidal Ideation: No Goal/Treatment Plan - Goal/Treatment Plan Need for Continued Stay: Severe depression anxiety, Discharge may exacerbated symptoms Progress Toward Problem(s) and Goals/Treatment Plan: seroquel 200mg daily 400mg qhs wellbutrin sr 150 mg daily and increase gradually neurontin 100mg tid motivational , group and supportive therapy
[2018-01-09] MEDS: buPROPion SR 150 MG TABLET PO SCH (09:28)
--- NOTE | 2018-01-09 09:53 | PCM.PYCHPN ---
Psychiatric Progress Note - Psychiatric Progress Note Patient seen today, length of contact: Pt evaluated, chart reviewed Patient Chief Complaint: "I don't want to tell you what the voices say." Problems Identified/Issues Discussed: Patient continues to be withdrawn w/ constricted affect and poverty of speech. She reports AH, but was guarded and would not tell the commercial real estate underwriter what the voices were saying. +Paranoia. +Depressed mood. Patient encouraged to get out of bed , shower, engage w/ others and participate in groups. Patient denies adverse effects to medications. Medication Change: No Medical Record Reviewed: Yes Consults ordered or reviewed: Medicine Mental Status Examination - Cognitive Function Orientation: Person, Place, Situation, Time Memory: Intact Association: WNL Fund of Knowledge: [facility] Decription of patient's judgement and insights: Poor I/J - Mood Mood: Depressed - Affect Affect: Blunted, Depressed - Speech Speech: Soft - Formal Thought Process Formal Thought Process: Hallucinations, Delusions, Paranoia, Circumstantial, Other (Poverty of Speech) Psychotic Thoughts and Behaviors: +AH, +Paranoia - Suicidal Ideation Suicidal Ideation: No - Homicidal Ideation Homicidal Ideation: No Goal/Treatment Plan - Goal/Treatment Plan Need for Continued Stay: Severe depression anxiety, Discharge may exacerbated symptoms Progress Toward Problem(s) and Goals/Treatment Plan: Schizoaffective Disorder -Continue current medications -Individual and group therapy -Psychoeducation
--- NOTE | 2018-01-10 08:21 | PCM.PYCHPN ---
Psychiatric Progress Note - Psychiatric Progress Note Patient seen today, length of contact: Pt evaluated, chart reviewed Patient Chief Complaint: "I don't want to tell you what the voices say." Problems Identified/Issues Discussed: Patient observed lying in bed, unwilling to leave her room or eat breakfast. She reports poor appetite and that she has been skipping meals. Patient continues to be withdrawn w/ constricted affect and poverty of speech. She reports AH, but was guarded and would not tell the functional tester typewriters what the voices were saying. +Paranoia. +Depressed mood. Patient encouraged to get out of bed, shower, engage w/ others and participate in groups. Patient denies adverse effects to medications. Medication Change: No Medical Record Reviewed: Yes Consults ordered or reviewed: Medicine Mental Status Examination - Cognitive Function Orientation: Person, Place, Situation, Time Memory: Intact Association: WNL Fund of Knowledge: [facility] Decription of patient's judgement and insights: Poor I/J - Mood Mood: Depressed - Affect Affect: Blunted, Depressed - Speech Speech: Soft - Formal Thought Process Formal Thought Process: Hallucinations, Delusions, Paranoia, Circumstantial, Other (Poverty of Speech) Psychotic Thoughts and Behaviors: +AH, +Paranoia - Suicidal Ideation Suicidal Ideation: No - Homicidal Ideation Homicidal Ideation: No Goal/Treatment Plan - Goal/Treatment Plan Need for Continued Stay: Severe depression anxiety, Discharge may exacerbated symptoms Progress Toward Problem(s) and Goals/Treatment Plan: Schizoaffective Disorder -Continue current medications -Individual and group therapy -Medicine consult -Psychoeducation
[2018-01-10] MEDS: buPROPion SR 150 MG TABLET PO SCH (09:18)
[2018-01-10] MEDS: Multivitamin With Minerals Tab PO SCH (12:47)
[2018-01-11] MEDS: Multivitamin With Minerals Tab PO SCH (11:16)
[2018-01-11] MEDS: buPROPion SR 150 MG TABLET PO SCH (11:16)
[2018-01-11] MEDS ORDERED: Venlafaxine 37.5 mg ER Cap PO ONE (13:30)
--- NOTE | 2018-01-11 15:21 | PCM.PYCHPN ---
Psychiatric Progress Note - Psychiatric Progress Note Patient seen today, length of contact: Pt evaluated, chart reviewed Patient Chief Complaint: I feel something bad will happen to my daughter Problems Identified/Issues Discussed: pt continues to present with depressed mood , depressed, constricted affect, isolating herself in her room continues to report feeling anxious about something bad to happen to her daughter in foster care , pt presenting with poor response to wellbutrin, discussed cross titrating to effexor , motivational therapy provided in reference to cannabis use , encouraged pt to attend groups pt denied any current active thoughts of self harm on the unit , denied side effects of medications Medical Problems: multiple inpatient hospitalizations , hx of non compliance Medication Change: Yes (start effexor) Medical Record Reviewed: Yes Mental Status Examination - Cognitive Function Orientation: Person, Place, Situation, Time Memory: Intact Association: WNL Fund of Knowledge: WNL - Mood Mood: Depressed - Affect Affect: Blunted, Depressed - Speech Speech: Soft - Formal Thought Process Formal Thought Process: Hallucinations, Delusions, Paranoia, Circumstantial, Other (Poverty of Speech) - Suicidal Ideation Suicidal Ideation: No - Homicidal Ideation Homicidal Ideation: No Goal/Treatment Plan - Goal/Treatment Plan Need for Continued Stay: Severe depression anxiety, Discharge may exacerbated symptoms Progress Toward Problem(s) and Goals/Treatment Plan: seroquel 200mg daily 400mg qhs discontinue wellbutrin start effexo 37.5 mg and increase gradually neurontin 100mg tid motivational , group and supportive therapy
[2018-01-12] MEDS: Venlafaxine 75 mg ER Cap PO SCH (09:11)
[2018-01-12] MEDS: Multivitamin With Minerals Tab PO SCH (09:11)
--- NOTE | 2018-01-12 13:25 | PCM.PYCHPN ---
Psychiatric Progress Note - Psychiatric Progress Note Patient seen today, length of contact: Pt evaluated, chart reviewed Patient Chief Complaint: I am feeling down Problems Identified/Issues Discussed: pt continues to be isolating herself in her room, guarded with limited interaction with staff and other patients , present with depressed mood , depressed, constricted affect,continues to report feeling anxious about something bad to happen to her daughter in foster care , discussed with pt increasing effexor to 75mg , no reported side effects , encouraged pt to attend groups pt denied any current active thoughts of self harm on the unit , denied command hallucinations Medical Problems: multiple inpatient hospitalizations , hx of non compliance Medication Change: Yes (increase effexor ) Medical Record Reviewed: Yes Mental Status Examination - Cognitive Function Orientation: Person, Place, Situation, Time Memory: Intact Attention: WNL Concentration: Poor Association: WNL Fund of Knowledge: WNL Decription of patient's judgement and insights: poor insight and judgment - Mood Mood: Depressed, Anxious - Affect Affect: Blunted, Depressed - Speech Speech: Soft - Formal Thought Process Formal Thought Process: Hallucinations, Delusions, Paranoia, Circumstantial, Other (Poverty of Speech) Psychotic Thoughts and Behaviors: pt reported faint non command auditory hallucinations - Suicidal Ideation Suicidal Ideation: No - Homicidal Ideation Homicidal Ideation: No Goal/Treatment Plan - Goal/Treatment Plan Need for Continued Stay: Severe depression anxiety, Discharge may exacerbated symptoms Progress Toward Problem(s) and Goals/Treatment Plan: seroquel 200mg daily 400mg qhs oncrease effexor 75mg daily neurontin 100mg tid motivational , group and supportive therapy Estimated Date of D/C: 01/15/18
[2018-01-13] MEDS: Multivitamin With Minerals Tab PO SCH (09:00)
[2018-01-13] MEDS: Venlafaxine 75 mg ER Cap PO SCH (11:18)
--- NOTE | 2018-01-13 14:31 | PCM.PYCHPN ---
Psychiatric Progress Note - Psychiatric Progress Note Patient seen today, length of contact: Pt evaluated, chart reviewed Patient Chief Complaint: I am starting to feel better with the effexor Problems Identified/Issues Discussed: pt evaluated with treatment team, reported feeling less depressed with effexor , continues to feel anxious about her daughter andd her living situation on discharge, discussed with pt starting partial hospital program on discharge, pt agreed, encouraged pt to attend groups pt denied any current active thoughts of self harm on the unit , denied command hallucinations Medical Problems: multiple inpatient hospitalizations , hx of non compliance DSM 5 Symptoms Update: major depression ptsd cannabis use disorder Medication Change: Yes (increase effexor ) Medical Record Reviewed: Yes Mental Status Examination - Cognitive Function Orientation: Person, Place, Situation, Time Memory: Intact Attention: WNL Concentration: WNL Association: WNL Fund of Knowledge: WN Decription of patient's judgement and insights: poor insight and judgment - Mood Mood: Depressed, Anxious - Affect Affect: Blunted, Depressed - Speech Speech: Soft - Formal Thought Process Formal Thought Process: Hallucinations, Delusions, Paranoia, Circumstantial, Other (Poverty of Speech) Psychotic Thoughts and Behaviors: pt reported faint non command auditory hallucinations - Suicidal Ideation Suicidal Ideation: No - Homicidal Ideation Homicidal Ideation: No Goal/Treatment Plan - Goal/Treatment Plan Need for Continued Stay: Severe depression anxiety, Discharge may exacerbated symptoms Progress Toward Problem(s) and Goals/Treatment Plan: seroquel 200mg daily 400mg qhs effexor 75mg daily increase gradually neurontin 100mg tid motivational , group and supportive therapy referral to partial hospital on discharge Estimated Date of D/C: 01/15/18
[2018-01-14 09:28] VITALS: RESP 18
[2018-01-14] MEDS: Multivitamin With Minerals Tab PO SCH (12:06)
[2018-01-14] MEDS: Venlafaxine 75 mg ER Cap PO SCH (12:07)
--- NOTE | 2018-01-14 15:36 | PCM.PYCHPN ---
Psychiatric Progress Note - Psychiatric Progress Note Patient seen today, length of contact: Pt evaluated, chart reviewed Patient Chief Complaint: I am less depressed Problems Identified/Issues Discussed: pt evaluated , more visible on the unit, observed interacting more with staff and other patients, reported feeling less depressed, affect less constricted, showing more insight into illness, pt agreed to attend partial hospital on discharge pt denied any current active thoughts of self harm on the unit , denied command hallucinations Medical Problems: multiple inpatient hospitalizations , hx of non compliance DSM 5 Symptoms Update: PTSD depression cannabis use disorder Medication Change: No (increase effexor ) Medical Record Reviewed: Yes Mental Status Examination - Cognitive Function Orientation: Person, Place, Situation, Time Memory: Intact Attention: WNL Concentration: WNL Association: WNL Fund of Knowledge: [facility] Decription of patient's judgement and insights: poor insight and judgment - Mood Mood: Depressed, Anxious - Affect Affect: Blunted, Depressed - Speech Speech: Soft - Formal Thought Process Formal Thought Process: Hallucinations, Delusions, Paranoia, Circumstantial, Other (Poverty of Speech) Psychotic Thoughts and Behaviors: pt reported faint non command auditory hallucinations - Suicidal Ideation Suicidal Ideation: No - Homicidal Ideation Homicidal Ideation: No Goal/Treatment Plan - Goal/Treatment Plan Need for Continued Stay: Severe depression anxiety, Discharge may exacerbated symptoms Progress Toward Problem(s) and Goals/Treatment Plan: seroquel 200mg daily 400mg qhs effexor 75mg daily increase gradually neurontin 100mg tid motivational , group and supportive therapy referral to partial hospital on discharge Estimated Date of D/C: 01/15/18
[2018-01-15] MEDS: Venlafaxine 75 mg ER Cap PO SCH (08:38)
[2018-01-15 09:22] VITALS: BP 123/63; PULSE 85; TEMP 97.9
[2018-01-15] MEDS: Multivitamin With Minerals Tab PO SCH (13:08)
--- NOTE | 2018-01-15 13:51 | PCM.PYCHDC ---
Mental Status Examination - Mental Status Examination Orientation: Person, Place, Situation Memory: Intact Mood: Neutral Affect: Constricted Speech: Appropriate Attention: WNL Concentration: WNL Association: WNL Fund of Knowledge: WNL Formal Thought Process: No Impairment Description of patient's judgement and insight: partial insight and poor judgment Psychotic Thoughts and Behaviors: pt on discharge denied perceptual disturbances, non elicited Suicidal Ideation: No Current Homicidal Ideation?: No Discharge Summary - Discharge Note Reason for Hospitalization: pt is 22ys old female with previous psychiatric diagnosis of schizoaffective disorder and cannabis use, recently discharged from hospital, non compliant with medications and started using cannabis daily, pt became increasingly paranoid and started experiencing auditory hallucinations , pt started having thoughts of ending her life, came to ER seeking help on the unit pt is guarded paranoid and evasive , internally preoccupied with thought blocking, , continues to have passive suicidal ideation without active plan on the unit, denied command hallucinations denied homicidal ideation Psychiatric History (includes Medical, Family, Personal Hx): multiple inpatient hospitalizations, hx of non compliance Consultations:: List each consultation separately and include: 1. Reason for request. 2. Findings. 3. Follow-up Summary of Hospital Course include:: 1. Description of specific treatment plan utilized for patients during their course of treatmen. 2. Summarize the time- course for resolution of acute symptoms and/or regressed behaviors. 3. Describe issues identified and worked on during hospitalization. 4. Describe medication utilized. 5. Describe medical problems identified and treated. 6. Reassessment of suicide risk Summary of Hospital Course: pt on admission reported non command auditory hallucinations, presented with depressed mood and affect, pt was started on seroquel, it was uptitrated to 600mg daily, also started on neurontin for anxiety motivational therapy provided in reference to cannabis use , effexor started for depression, it was increased to 75mg daily pt gradually became less depressed, participated in treatment and attended groups, no reported side effects of medications on discharge mental status was stable, pt denied suicidal or homicidal ideation , denied perceptual disturbances, follow up arranged by [facility] at [facility] partial program - Diagnosis (1) Depression Current Visit: No Status: Acute - Final Diagnosis (DSM 5) Condition upon Discharge: STABLE DSM 5: post traumatic stress disorder major depression cannabis induced psychotic disorder cannabis abuse Disposition: HOME/ ROUTINE Follow-up Treatment Plan: seroquel 200mg daily 400mg qhs effexor 75mg daily increase gradually neurontin 100mg tid motivational , group and supportive therapy referral to [facility] on discharge Prescriptions/Medication Reconciliation: Gabapentin [Neurontin] 100 mg PO TID 30 Days #90 cap Venlafaxine [Effexor XR] 75 mg PO DAILY 30 Days #30 cer - Antipsychotic Medications Pt discharged on 2 or more routine antipsychotic medications: No
== END 2018-01-15 13:59 | disposition home or self-care (01) | DRG 427 ==
LOC: H.ER 18:29 → H.ERHOLD 01-05 00:17 → H.PSYCH 01-05 01:35
PROVIDERS: ADMIT Psychiatry & Neurology Psychiatry; ATTEND Psychiatry & Neurology Psychiatry
PROC: GZHZZZZ Group Psychotherapy (ICD-10-PCS; principal; 2018-01-05)
PROC: HZ57ZZZ Individual Psychotherapy for Substance Abuse Treatment, Motivational Enhancement (ICD-10-PCS; 2018-01-05)
PROC: HZ59ZZZ Individual Psychotherapy for Substance Abuse Treatment, Supportive (ICD-10-PCS; 2018-01-05)
PROC: HZ56ZZZ Individual Psychotherapy for Substance Abuse Treatment, Psychoeducation (ICD-10-PCS; 2018-01-05)
DX: F43.10 Post-traumatic stress disorder, unspecified (principal); F32.9 Major depressive disorder, single episode, unspecified; R45.851 Suicidal ideations; Z91.14 Patient's other noncompliance with medication regimen; F17.210 Nicotine dependence, cigarettes, uncomplicated; F12.159 Cannabis abuse with psychotic disorder, unspecified; Z91.011 Allergy to milk products